=== PATIENT | male | born 1995 | race Caucasian/White ===

== ENCOUNTER 2018-06-01 08:41 | Emergency (ER) | payer SELFPAY ==
[~2018-06-01] VITALS: Ht 180.3 cm; Wt 108.9 kg
[2018-06-01 08:44] VITALS: BP 137/64
--- NOTE | 2018-06-01 08:44 | NUR ---
PT BIB [facility] FOR PREBOOK
--- NOTE | 2018-06-01 08:50 | NUR ---
22 YO MALE BIB [facility] EXAM, AWAKE AND ALERT DENIES INJURY OR PAIN HERE FOR CLEAR TO BOOK.
--- NOTE | 2018-06-01 08:50 | NUR ---
DR RAVI EVALUATING PT AT BEDSIDE
[2018-06-01 08:52] VITALS: BP 137/64
== END 2018-06-01 09:00 ==
LOC: MED 08:41
DX: Z02.89 Encounter for other administrative examinations (principal); V89.2XXA Person injured in unspecified motor-vehicle accident, traffic, initial encounter; Y93.89 Activity, other specified; Y92.89 Other specified places as the place of occurrence of the external cause; Y99.8 Other external cause status
CPT/HCPCS: 99283